=== PATIENT | male | born 1945 | race Caucasian/White ===

== ENCOUNTER → 2019-02-20 | Outpatient (CLI) | payer MEDICARE ==
[2013-09-26 10:41] VITALS: BP 123/62
[~2019-02-20] MED LIST: AMIO200T4 PO; ASPI325T11 PO; CLOP75TA PO; FERR325T14 PO; METO25TA4 PO; OXYC1TAB15 PO; SIMV20TA PO; TAMS0.4C97 PO; ZOLP5TAB PO
--- NOTE | 2019-02-20 09:49 | CARD ---
MR#: [id number] Date of Study: 02/20/2019 Ordering Physician: BANG JAVED, Referring Physician: BANG JAVED, Janny: Airam Curran APPROVED REPORT EXAM: Two-dimensional and M-mode echocardiogram with Doppler and color Doppler. Other Information Quality : AverageHR: 41bpm INDICATION S/P CABG x5 2D DIMENSIONS RVDd2.8 (2.9-3.5cm)Left Atrium(2D)4.9 (1.6-4.0cm) IVSd1.4 (0.7-1.1cm)Aortic Root(2D)2.3 (2.0-3.7cm) LVDd5.3 (3.9-5.9cm)LVOT Diameter2.0 (1.8-2.4cm) PWd1.3 (0.7-1.1cm)LVDs3.8 (2.5-4.0cm) FS (%) 28.0 %SV73.6 ml LVEF(%)53.8 (>50%) Aortic Valve AoV Peak Kalpesh.102.4cm/sAoV VTI25.7cm AO Peak GR.4.2mmHgLVOT Peak Kalpesh.97.3cm/s AO Mean GR.2mmHgAVA (VMAX)3.12cm2 Mitral Valve MV E Hqhuamob65.2cm/sMV E Peak Gr.2mmHg MV DECEL [id number] A Zmgihbkm57.0cm/s MV E Mean Gr.1mmHgE/A Ratio1.7 Pulmonary Valve PV Peak Zmeegxfi73.4cm/s Tricuspid Valve RAP [id number] Pulmonary Vein S1 Ipenxufl83.8cm/sD2 Xwircmiy81.1cm/s LEFT VENTRICLE The left ventricle is normal size. There is mild concentric left ventricular hypertrophy. The left ve ntricular systolic function is normal. The Ejection Fraction is 55-60%. There is normal LV segmental wall motion. Transmitral Doppler flow pattern is Grade II-pseudonormal filling dynamics. RIGHT VENTRICLE The right ventricle is normal size. There is normal right ventricular wall thickness. The right ventr icular systolic function is normal. ATRIA The left atrium is mildly dilated. The right atrium size is normal. The interatrial septum is intact with no evidence for an atrial septal defect or patent foramen ovale as noted on 2-D or Doppler imagi ng. AORTIC VALVE The aortic valve is mildly thickened but opens well. Doppler and Color Flow revealed no significant a ortic regurgitation. There is no significant aortic valvular stenosis. MITRAL VALVE The mitral valve is thickened but opens well. There is no evidence of mitral valve prolapse. There is no mitral valve stenosis. Doppler and Color-flow revealed trace mitral regurgitation. TRICUSPID VALVE The tricuspid valve is normal in structure and function. Doppler and Color Flow revealed trace tricus pid regurgitation. There is no tricuspid valve stenosis. PULMONIC VALVE The pulmonic valve is not well visualized. Doppler and Color Flow revealed trace to mild pulmonic karis vular regurgitation. GREAT VESSELS The aortic root is normal in size. The ascending aorta is normal in size. The IVC is normal in size a nd collapses >50% with inspiration. PERICARDIAL EFFUSION There is no pleural effusion. There is no evidence of significant pericardial effusion. Critical Notification Critical Value: No <Conclusion> The left ventricular systolic function is normal. The Ejection Fraction is 55-60%. There is normal LV segmental wall motion. Trace mitral regurgitation. Trace tricuspid regurgitation. There is no evidence of significant pericardial effusion. Signed by : Umer Valiente, Electronically Approved : 02/20/2019 09:49:10
== END | disposition home or self-care (01) ==
LOC: ECHO 07:51
PROVIDERS: ATTEND Internal Medicine Cardiovascular Disease
DX: I37.1 Nonrheumatic pulmonary valve insufficiency (principal); I51.7 Cardiomegaly; Z95.1 Presence of aortocoronary bypass graft
CPT/HCPCS: 93306